=== PATIENT | female | born 1995 | race Caucasian/White ===

== ENCOUNTER 2018-02-02 22:15 | Emergency (ER) | payer OTHER ==
[~2018-02-02] VITALS: Ht 162.6 cm; Wt 108.0 kg
[~2018-02-02 22:15] MED LIST: ALBU90OI6; FAMO20 PO; PROM25 PO; SUCR1 PO
== END 2018-02-03 02:41 | disposition home or self-care (01) ==
LOC: ER 22:15
DX: R07.9 Chest pain, unspecified (principal)
CPT/HCPCS: 71046; 93005; 93010; 99285-25

== ENCOUNTER 2020-11-14 02:22 | Emergency (ER) | payer OTHER ==
[~2020-11-14] VITALS: Ht 162.6 cm; Wt 113.4 kg
[2020-11-14] MEDS ORDERED: CYCL10 PO (03:59)
[2020-11-14] MEDS ORDERED: IBU600 MG PO (03:59)
== END 2020-11-14 04:16 | disposition home or self-care (01) ==
LOC: ER 02:22
DX: R51.9 Headache, unspecified (principal); H93.13 Tinnitus, bilateral; M25.562 Pain in left knee; M25.561 Pain in right knee; M25.511 Pain in right shoulder; V49.40XA Driver injured in collision with unspecified motor vehicles in traffic accident, initial encounter; Y92.410 Unspecified street and highway as the place of occurrence of the external cause
CPT/HCPCS: 70450; 71046; 72125; 99284-25; A9270

== ENCOUNTER 2022-05-21 12:24 | Emergency (ER) | payer OTHER ==
[~2022-05-21] VITALS: Ht 162.6 cm; Wt 113.4 kg
[~2022-05-21 12:24] MED LIST changes: +CYCL10 PO; +IBU600 MG PO
[2022-05-21] MEDS ORDERED: Norco 5-325 Ta1 EACH PO (12:39)
[2022-05-21] MEDS ORDERED: Amoxicillin500 MG PO (12:39)
== END 2022-05-21 12:39 | disposition home or self-care (01) ==
LOC: ER 12:24
DX: K04.7 Periapical abscess without sinus (principal); Z79.899 Other long term (current) drug therapy
CPT/HCPCS: 99282